=== PATIENT | female | born 1950 | race Caucasian/White ===

== ENCOUNTER 2018-07-19 13:30 | Outpatient (RCR) | payer MEDICARE, SELFPAY ==
--- NOTE | 2018-06-21 10:33 | PTTR_ITS ---
DATE: 06/21/18 SUBJECTIVE: Pt reports that she did her MLD yesterday according to the handout she received Tuesday, and reports that it did help, that she was notably less swollen yesterday, although today the swelling has returned. OBJECTIVE: Manual therapy: ([id number]). With pt short-stitting EOB, mobilized both knees with PA/AP glides, METs into flexion with stretch held at end range. Pt moved into supine, mobilized bilateral patella in all planes. Stretched pt into extension - pt appeared to achieve full extension bilaterally. Briefly reviewed HEP including SLR to ensure isometric quad contraction. Placed bolster under legs, applied MLD to left leg beginning with opening the inguinal , popliteal, and ankle nodes. MLD techniques applied proximal to distal. Stimulated the aforementioned nodes again. Pt ended session with 5 minutes on the NuStep to encourage good AROM in both knees. Direct treatment time: 45 minutes Total treatment time: 45 minutes
--- NOTE | 2018-06-23 15:52 | PTTR_ITS ---
DATE: 06/23/18 SUBJECTIVE: Pt states that her surgeon mentioned that she needs to try and increase her knee extension. OBJECTIVE: Manual therapy: (15587s6). Pt received tibial femoral and patella femoral joint mobilizations to bilateral LE's. Pt received AAROM into knee flexion and extension. Pt utilized muscle energy techniques to increase knee flexion ROM. Pt was able to achieve R 100 degrees knee flexion L 96 degrees knee flexion. Pt was able to achieve 0 degrees knee extension bilaterally. Pt then received stimulation to the same side axillary, inguinal, popliteal, and ankle. Pt received MLD starting proximally and working distally clearing to the same side axillary. Therapeutic procedures (22156r3). * X Provided skilled instruction in proper exercise performance: Pt completed opened and closed chain LE strengthening, functional sit to stands, and cardio on the Nu Step. Direct treatment time: 45 Total treatment time: 55
--- NOTE | 2018-06-26 11:34 | PTTR_ITS ---
DATE: 06/26/18 OBJECTIVE: Co Treatment with PT Shyam King Manual therapy: (31395v). Pt received brief patella mobilization and mobilization into knee extension bilaterally. Pt was able to achieve 0 degrees knee extension on the right and lacking approx -5 knee extension of the left. Pt is going to try and cont to complete her self MLD at home and we will see if that is enough for the pt or if we need to cont a few more session here. Therapeutic procedures (30882z9). * X Provided skilled instruction in proper exercise performance: Pt completed open and closed chain LE strengthening, glute strengthening, functional sit to stands, and cardio on the Nu Step/ stationary bike for ROM. Pt ended today's session with CP and elevation for 10 min un attended with the wellness. Direct treatment time: 30 Total treatment time: 45
--- NOTE | 2018-06-26 13:55 | PTTR_ITS ---
DATE: 06/26/18 SUBJECTIVE: Pt states that she is doing ok. She had an update with her surgeon and he would like to see more mobilization occurring through the knee into the bend. OBJECTIVE: Manual therapy: (70259m6). Pt placed in the sitting position gently mobilized with light traction through the knee while ranged in a limited arc of motion and from 60-10*. She is then mobilized near full extension (B) and then an anterior glide of the tibia on a fixed femur is applied witrh gentle oscillations and then with a sustained anterior glide and utilizing light muscle energy technique of a contract relax variety. She is mobilized further into knee flexion which she tolerates well with expanding range on the (R) and more limited range through the (L). But she appears to be gaining. Gentle scap tissue mobilization to the more proximal section of the incision scar for tissue remodeling. Pt then seen by Jessica Lr PTA for additional strengthening exercises, please refer to her note for details. Direct treatment time: 30 minutes Total treatment time: 30 minutes
--- NOTE | 2018-06-28 11:12 | PTTR_ITS ---
DATE: 06/28/18 OBJECTIVE: Manual therapy: (08151g). Pt received brief mobilization to her left knee into knee flexion utilizing muscle energy techniques to increase ROM. Pt was able to achieve approx 95 degrees knee flexion on the L LE after mobilization. Therapeutic procedures (96566d1). * X Provided skilled instruction in proper exercise performance: Pt completed open and closed chain LE strengthening, glute strengthening, functional sit to stands, and cardio on the Nu Step. Pt completed the stationary bike for ROM purposes. Direct treatment time: 30 Total treatment time: 40
--- NOTE | 2018-06-28 13:16 | PTTR_ITS ---
DATE: 06/28/18 SUBJECTIVE: Pt states that she is doing ok for the most part. OBJECTIVE: Manual therapy: (57407r7). Pt placed in the sitting position receiving gentle traction through the knee while ranged in a limited arc of motion from 60-10*. She is mobilized with light traction through the knee and will also use tibial rotation into IR/ER expressed at a limit of tibial torion. She is mobilized with an anterior glide of the tibia on a fixed femur to improve articular glide and capsular extensibility and then a muscle energy technique is applied to release quadricep tension while improving flexion and mobility. This occurs (B) and she is then seen by Be Lopez PTA for additional mobilization and strengthening exercises see her note for details. Direct treatment time: 25 minutes Total treatment time: 25 minutes
--- NOTE | 2018-06-30 09:51 | PTTR_ITS ---
DATE: 06/30/18 OBJECTIVE: This was a co tx with PT Shyam King please refer to his note for specifics. Manual therapy: (68439d1). Consisting of patella mobilization and mobilization to (B) knee extension which pt was able to achieve 0* of extension. Therapeutic procedures (96536z4). Pt then completed a therapeutic exercise program consisting of open and closed chain LE strengthening activities, functional sit to stands, glute strengthening activities and cardiovascular exercise on the Nustep and the stationary bike for ROM purposes. Pt was able to tolerate a full revolution today on the bike. Direct treatment time: 30 minutes Total treatment time: 45 minutes
--- NOTE | 2018-06-30 14:34 | PTTR_ITS ---
DATE: 06/30/18 SUBJECTIVE: Pt states that she is doing ok. She noticed that her L leg was a little more sore today. She doesn't really recall what she did to make it a little more sore. OBJECTIVE: Manual therapy: (69842s9).Pt placed in the sitting position receiving gentle oscillations of movement from 60-10 degrees of knee flexion while under light traction through the joint. She is then mobilized with anterior glide of the tibia on a fixed femur to improve articular extensibility of the joint capsule. Then contract/relax MET is applied through the quad to decrease quadricep splintering while furthering her flexion motion. Pt then placed in supine with the knee at 45 degrees on the L side propped up on a wedge pillow.She is mobilized with IASTM through the more proximal section of her scar tissue of the incision. She notices a significant improvement of the quality of her knee motion afterwards and she is mobilized to well over 100 degrees of knee flexion. She is then seen by Karely Lr PTA for additional strengthening exercises. See her note for details. Direct treatment time: 30 min Total treatment time: 30 min direct pt care EVANGELINA/vesta
--- NOTE | 2018-07-03 10:28 | PTTR_ITS ---
DATE: 07/03/18 SUBJECTIVE: Pt states that she is pretty sore today. OBJECTIVE: Manual therapy: (85563n1). Todays session consisted of pt receiving tibiofemoral and patella femoral joint mobilizations to the involved LE as well as stretching into knee flexion and extension. While in the seated position after mobilization for knee flexion on the (L) pt was able to achieve 93* of knee flexion on the (R), 102* knee flexion after utilizing muscle energy techniques and mobilization. Pt was able to achieve 0* knee extension (B) and pt then transitioned into the prone position and received mobilization into knee flexion in that position as well. Pt did seem to be quite sore today and didn't tolerate her ROM as well as she usually does. Therapeutic procedures (65360g4). Pt then completed a therapeutic exercise program consisting of open and closed chain LE strengthening activities as per flow sheet. Functional sit to stands, glute strengthening activities and cardiovascular exercise on the Nustep and stationary bicycle for ROM purposes with the wellness. Direct treatment time: 40 minutes Total treatment time: 60 minutes
--- NOTE | 2018-07-06 15:41 | PN_ITS ---
DATE: 07/06/18 REFERRING: Alondra Boles NP REFERRING PROVIDER DIAGNOSIS:: Bilateral TKA PHYSICAL THERAPY DIAGNOSIS: Difficulty walking REPORTING PERIOD (for progress note and discharge note only): 06/13/18 thru 07/06 SUBJECTIVE: I am doing okay. I have been noticing some big improvements at home. OBJECTIVE: Manual therapy: (55325w9). Patient was guided through gentle traction through the knee while ranged from a limited arc of motion 60-10 degrees. She was mobilized with light traction and tibial internal and external rotation to tolerable limit. An anterior glide of the tibia was completed through a fixed femur to work articular and capsular extensibility. Patient then mobilized under gentle contract relax muscle energy technique through deeper flexion ranges of motion of the knee. In supine she is mobilized with IASTM over the proximal scar tissue incision on both knee for remodeling and scar tissue work. Therapeutic procedures (01301w0). * X HEP review: Technique review and corrective modification where appropriate. * X See flow sheet: Completed all corrective activities * X Provided skilled instruction in proper exercise performance: [] * X Provided skilled manual cues to facilitate proper muscle recruitment and/ or movement pattern: [] * X Other: Utilized stationary bike as an augmented mobilization tool today with randomized forward and backward cycling against variable resistance. Treatment time: 55 minutes of direct patient care. ASSESSMENT: X Patient requires continued skilled Physical Therapy intervention to remediate the above functional limitations to return to: * X Premorbid level of function. * X Full functional mobility. * X Improve quality of life. G-Codes (add modifier after appropriate code): Patient's primary functional limitation is in the category of: * X Mobility - walking and moving around : [id number] Present status determined by (SM or other justification): Patient having near unlimited involvement in house hold chores and activities already greater than her premorbid level of function. She is still limited by her walking deficits in distance however. Goal to increase functional capacity beyond premorbid level of function with ambulation. GP -[id number] Goal progression: (copy/paste from IE or last PN). 1. Patient able to walk 1/2 mile independent of assistive device. Goal very close to be met. 2. Patient able to walk 1200 through 6MWT. Goal not met. 3. Patient able to utilize a reciprocal step pattern for negotiating up to 2 flights without evidence of pain. Goal very close to being met. PLAN: Patient to continue treatment, 2 x per week, for 5 weeks, adjusting frequency of visits per patient symptoms and response to treatment. Treatment to include: * X Manual therapy - [id number][] (indicate any further detail here): [] * X Therapeutic exercise - 08259H-[]. * X Neuro Re-ed - 10386T-[]. Thank you for your continued support of this patient! cc. Osman Boles, DO
--- NOTE | 2018-07-10 10:07 | NT_ITS ---
NON TREATMENT NOTE; 07/10/18 Patient called to cancel today's appointment
--- NOTE | 2018-07-12 11:47 | PTTR_ITS ---
DATE: 07/12/18 OBJECTIVE: Co Treatment with Pt Shyam Maganaer Therapeutic procedures (24406k3). * X Provided skilled instruction in proper exercise performance: Pt completed functional sit to stands, open and closed chain LE strengthening, wobble board, glute strengthening, stationary bike for ROM purposes, and cardio on the Nu Step. I will cont to progress pt's program and when she has an established program pt will complete the MSP program. Direct treatment time: 25 Total treatment time: 40
--- NOTE | 2018-07-12 15:16 | PTTR_ITS ---
DATE: 07/12/18 SUBJECTIVE: I am doing okay for the most part. OBJECTIVE: Manual therapy: (26612o8): Patient was placed in sitting and mobilized with gentle traction through the knee while guided through a limited arc of motion from 60-10 degrees. She was mobilized with anterior glide of the tibia on a fixed femur to improve articular extensibility. Patient then mobilized with light traction and tibial internal and external rotation. Patient was then mobilized through the plane of flexion while reinforcing a light tibial rotation , mild anterior glide, and using MET to soften muscle splinting through the quadriceps. She is then seen by Karely Lr PTA for additional exercises, see her note for details. Direct treatment time: 30 minutes of direct patient care.
--- NOTE | 2018-07-14 14:16 | PTTR_ITS ---
DATE: 07/14/18 SUBJECTIVE: I am doing okay for the most part. OBJECTIVE: Manual therapy: (62986o1): Patient was placed in sitting and mobilized with gentle traction through the left lower extremity while ranged in a limited arc of motion from 60-10 degrees. She was mobilized from 60 degrees with light traction and internal and external rotation within level of tolerance to end limit. Contract relax muscle energy technique was used for patient to decrease tension through the quadriceps and increase available motion through flexion. Patient was able to reach close to 110 degrees with minimal amounts of compensatory hip girdle elevation. Patient tolerated treatment well. Then seen by Karely Lr PTA for guided therapeutic instruction via corrective exercise see her note for details. Direct treatment time: 30 minutes of direct patient care.
--- NOTE | 2018-07-14 14:35 | PTTR_ITS ---
DATE: 07/14/18 OBJECTIVE: Co Treatment with PT Shyam King Therapeutic procedures (06414j1). * X Provided skilled instruction in proper exercise performance: Pt completed open and closed chain LE strengthening, glute strengthening, functional sit to stands, and cardio on the stationary bike and Nu Step. Pt was prepped for her last time for MSP. She will complete her program on her own starting next week. Direct treatment time: 30 Total treatment time: 45
--- NOTE | 2018-07-17 14:22 | PTTR_ITS ---
DATE: 07/17/18 SUBJECTIVE: I am doing okay for the most part. OBJECTIVE: Manual therapy: ([id number]): Patient was placed in supine and mobilized with gentle oscillatory traction through the knee while ranged from a limited arc of motion from 60-10 degrees. Patient was then mobilized with anterior glide of the tibia on a fixed femur to improve articular extensibility. She was guided through MET to decrease muscle tension and improve articular flow of motion with her flexion. Patient mobilized beyond 110 degrees and then taken through the stationary bike to reinforce her movement patterns for 5 minutes of unbilled time. Direct treatment time: 30 minutes of direct patient care. 5 minutes of unbilled time for 35 minutes of total treatment.
--- NOTE | 2018-07-19 10:32 | PTTR_ITS ---
DATE: 07/19/18 SUBJECTIVE: Patient states she is doing O.K. for the most part. Is handling herself well at home, and trying to perform some of her exercises for treatment. OBJECTIVE: Manual therapy: (84954w8). Patient was placed in the sitting position and gently mobilized through the left knee with traction while mobilizing in a limited arc of motion from 60 to 10 . She was then mobilized with an anterior glide of the tibia on a fixed femur. MET was employed to decrease splinting through the quadriceps musculature, and allow unrestricted motion through her tolerable end limit of flexion, which occurs at about 110 . She was then placed on the stationary bike x5 minutes of un-billed time. Direct treatment time: 30 minutes Total treatment time: 35 minutes Shyam King DPT gc
== END 2018-07-21 23:59 | disposition home or self-care (01) ==
LOC: PT 13:30
PROVIDERS: PCP Internal Medicine Sleep Medicine; Referring Provider Nurse Practitioner; Visit Provider Nurse Practitioner
DX: Z47.1 Aftercare following joint replacement surgery (principal); Z96.653 Presence of artificial knee joint, bilateral
CPT/HCPCS: 97110; 97140

== ENCOUNTER 2018-12-02 11:01 | Emergency (ER) | payer MEDICARE, SELFPAY ==
[2018-12-02 11:10] VITALS: BP 157/87; PULSE 98; RESP 16; TEMP 37; O2SAT 94
--- NOTE | 2018-12-02 11:44 | DI.RAD_ITS ---
SYMPTOM/DIAGNOSIS: SENSATION OF FOREIGN BODY IN THROAT, R/O FOREIGN BODY SOFT TISSUE NECK: There is no prevertebral soft tissue swelling. No radiopaque foreign body seen. No tracheal deviation. There are degenerative changes in the lower cervical spine. IMPRESSION: Degenerative changes. No evidence of foreign body.
--- NOTE | 2018-12-02 11:44 | DI.RAD_ITS ---
SYMPTOM/DIAGNOSIS: FOREIGN BODY SENSATION IN THROAT, F/O FOREIGN BODY PA AND LATERAL CHEST: Comparison is made with 05 Nov 2004. The heart size is normal. The aorta is again noted to be tortuous. The lungs appear clear. No infiltrate or effusion seen. There is no evidence of a foreign body. IMPRESSION: No acute abnormality.
[2018-12-02] MEDS: Omeprazole 20 MG CAPCR PO (11:49)
--- NOTE | 2018-12-02 12:18 | ED.GENADUL_ITS ---
Discharge Plan Disposition Patient Disposition: HOME Condition: Improving Discharge Details Chief Complaint: ThroatFB Clinical Impression: Acid indigestion, Belching, Foreign body sensation in throat Primary Care Provider: Omkar Diego ED Provider: Mary Sotelo Home Meds and New Rx's Prescriptions: New Prilosec OTC 20 mg tablet,delayed release (DR/EC) 20 mg PO DAILY 14 Days Qty: 14 RF: 0 Continued Vitamin D3 4,000 unit Capsule 4,000 unit PO DAILY RF: 0 Discharge Instructions Instructions: Gastroesophageal Reflux Disease (ED) Additional Instructions: Take your Prilosec that you have at home as directed. Take [id number] antacids and/or mylanta as directed. You will receive a call from care management regarding a follow-up appointment with general surgery for reevaluation and for consideration of endoscopy. You can also call your primary care doctor for referral to gastroenterology at [facility]. Return immediately to the emergency department any worsening or new concerning symptoms. Referrals: Seema Piña MD [ [facility] STAFF PHYSICIAN] - Discharge Data Discharge Date/Time-TO BE ENTERED AT DEPARTURE: 12/02/18 13:40 Discharge Physician: Mary Sotelo Medical Decision Making 68-year-old female who presents with foreign body sensation in throat, acid taste in mouth, frequent gurgling and belching for the past 3 weeks. Denies any history of choking on food or food getting stuck. She denies any chest pain, vomiting, fever abdominal pain. Vitals within normal limits. Patient appears nontoxic and in no acute distress. She does appear anxious. Blood pressure mildly hypertensive, otherwise vitals within normal limits. Differential diagnosis includes most likely GERD, gastritis, peptic ulcer. Discussed with patient that she will most likely need an upper endoscopy to assess her symptoms further. Will obtain a soft tissue neck and chest x-ray to rule out any foreign body or any other abnormalities. Patient also has an allergy to peanuts, which causes a cross sensitivity with Pepcid p.o. She states her allergy to peanuts causes mainly nausea and abdominal pain. Although this may not be an allergy, do not plan to treat with Pepcid at home, patient states she has Prilosec at home. Will give a GI cocktail and a dose of Prilosec now. Imaging reviewed and negative. EKG done and unremarkable. Patient states she feels much better after meds given here. Patient instructed to take her Prilosec at home as directed. Will also send home with a prescription. Will place patient on care management list to help arrange for follow-up appoinment with surgery for possible endoscopy. Patient also instructed to follow-up with a primary care doctor and for referral to gastroenterology for endoscopy if does not follow-up here. Patient instructed return here at any time if worse. Medical Records Medical records reviewed: Yes I reviewed the patient's medical records. Imaging Data Radiologic Study: Radiologist's impression: XR Soft Tissue Neck FINDINGS: Airway: Normal. No abnormal narrowing. Soft tissues: Normal. Normal epiglottis. Bones/joints: There is spondylosis at C5-6 and C6-7. Other findings: Denture were noted. IMPRESSION: No evidence for radiopaque foreign body. XR Chest, 2 Views FINDINGS: Lungs: Unremarkable. No consolidation. Pleural space: Unremarkable. No pleural effusion. No pneumothorax. Heart/Mediastinum: Unremarkable. No cardiomegaly. Vasculature: There is atherosclerotic change in the aorta with mild ectasia. Bones/joints: Unremarkable. IMPRESSION: No evidence for radiopaque foreign body. No acute abnormality noted in the chest. ECG Data Attestation: I personally reviewed and interpreted this ECG (s) as follows: Interpretation: 1333: Rate of 68, sinus, no acute ST elevation or depression, QTC 406. QRS 96. T wave inversion in lead III, seen in previous EKG. HPI General Mode of arrival: ambulatory . Date/Time Provider Initiated Documentation: 12/02/18 11:17 . Limitations to Documentation: no limitations . Information obtained by: patient . HPI Narrative: Patient is a 68-year-old female with history of arthritis and GERD who presents with sensation of possible food stuck in throat, acid reflux, belching, and scratchy throat for the past 3 weeks. Patient states she does not recall choking on food and does not think there is any food stuck, but she has the sensation when she swallows that there is bubbling and gurgling. She states she has a sensation that she needs to clear her throat regularly. Patient states she has been otherwise able to eat and drink. She states yesterday she was drinking liquids and felt like she was only able to take a few sips due to a stuck sensation. Patient states she was able to eat breakfast morning and no nausea or vomiting. She does also admit to a dry cough and occasional acid taste in mouth. Patient states she has been occasionally taking an antacid without relief. She denies any fever, pain in chest, abdomen or throat, recent travel, recent antibiotics, or any other new medications. Patient states she had been taking 600 mg of Motrin daily for the past 5 years due to chronic hip and knee pain but states she has not taken this for a few months. Related Data Home Medications Medication Instructions Recorded Confirmed Vitamin D3 4,000 unit PO DAILY 12/02/18 12/02/18 omeprazole magnesium [Prilosec OTC] 20 mg PO DAILY 14 Days #14 tab 12/02/18 Previous Rx's Medication Instructions Recorded omeprazole magnesium [Prilosec OTC] 20 mg PO DAILY 14 Days #14 tab 12/02/18 Allergies Allergy/AdvReac Type Severity Reaction Status Date / Time latex Allergy Skin Rash Unverified 12/02/18 11:15 peanut Allergy Nausea Unverified 12/02/18 11:17 Sulfa (Sulfonamide Allergy PASSED Unverified 12/02/18 11:15 Antibiotics) OUT acetaminophen [From Tylenol] AdvReac GI UPSET Unverified 12/02/18 11:15 aspirin AdvReac GI UPSET Unverified 12/02/18 11:15 General Stated Complaint: ThroatFB ZACH: 3 Review of Systems Review of Systems All systems reviewed & are unremarkable except as noted in HPI and below Constitutional Reports as per HPI, Denies chills and Denies fever(s) Eyes Denies blurry vision ENT Denies dizziness, Reports hoarseness, Denies odynophagia, Denies sore throat and Denies throat swelling Cardiovascular Denies chest pain and Denies dyspnea Respiratory Denies dyspnea Gastrointestinal Denies abdominal pain, Denies diarrhea, Denies odynophagia and Denies vomiting Genitourinary Denies hematuria and Denies dysuria Musculoskeletal Denies back pain and Denies numbness Integumentary/Breasts Denies lesions and Denies rash Neurologic Denies dizziness and Denies numbness Allergic/Immunologic Denies throat swelling [facility] Medical History GERD (gastroesophageal reflux disease) (Chronic) Osteoarthritis (Chronic) Surgical History History of hip replacement (Chronic) History of knee replacement (Chronic) Social History Smoking/Tobacco Use Status: Never alcohol intake: current alcohol intake frequency: a few times a month substance use type: does not use Exam Const General: cooperative, healthy appearing and no acute distress HENMT Head: normal to inspection Ears: hearing grossly normal bilaterally and TM's normal bilaterally General nose exam: external nose normal Face and sinus: normal facial exam Mouth: oral mucosae normal and oropharynx normal Throat: posterior oropharynx normal Eyes General: appearance normal, both eyes and all related structures EOM: EOM intact bilaterally Neck Neck: normal visual inspection and No submandibular swelling Lymphatic: no lymphadenopathy noted Chest Chest: normal inspection of the chest and no tenderness Resp Effort & Inspection: normal respiratory effort and able to speak in complete sentences Auscultation: clear to auscultation bilaterally Cardio Rate: regular rate Rhythm: regular rhythm GI Inspection: normal to inspection Palpation: soft, not firm, not rigid and nontender Auscultation: normal bowel sounds Skin General skin exam: no rashes or lesions noted Neuro General: alert, awake and oriented x3 Cognition: normal cognition Speech: speech normal Motor: muscle tone normal throughout Sensory Exam: no sensory deficits noted Extrem General: normal to inspection and full ROM Psych Appearance: grossly normal Mental Status: mental status grossly normal Speech and Movement: speech and movement normal Affect: normal affect Course Vital Signs Temperature 98.6 F 12/02/18 11:10 Pulse 98 H 12/02/18 11:10 Respiratory Rate 16 12/02/18 11:10 Blood Pressure 157/87 H 12/02/18 11:10 Pulse Oximetry 94 L 12/02/18 11:10 Temperature 98.6 F 12/02/18 11:10 Temperature Source Skin 12/02/18 11:10 Pulse 98 H 12/02/18 11:10 Respiratory Rate 16 12/02/18 11:10 Respiratory Effort Non-Labored 12/02/18 11:10 Blood Pressure 157/87 H 12/02/18 11:10 Blood Pressure Position Sitting 12/02/18 11:10 Pulse Oximetry 94 L 12/02/18 11:10 Oxygen Delivery Method Room Air 12/02/18 11:10 Oxygen Flow Rate 0 12/02/18 11:10 Pain Level 0 12/02/18 11:10
--- NOTE | 2018-12-02 12:52 | DI.VRAD_ITS ---
EXAM: XR Chest, 2 Views EXAM DATE/TIME: 12/02/2018 12:16 PM CLINICAL HISTORY: 68 years old, female; Signs and symptoms; Other: Sensation of foreign body TECHNIQUE: XR of the chest, 2 views. COMPARISON: No relevant prior studies available. FINDINGS: Lungs: Unremarkable. No consolidation. Pleural space: Unremarkable. No pleural effusion. No pneumothorax. Heart/Mediastinum: Unremarkable. No cardiomegaly. Vasculature: There is atherosclerotic change in the aorta with mild ectasia. Bones/joints: Unremarkable. IMPRESSION: No evidence for radiopaque foreign body. No acute abnormality noted in the chest. COMMENT: Preliminary interpretation is based on receipt of 2 image(s). A final report will be issued subsequently. Dictated and Authenticated by: Nydia Stovall MD. Ordering:SUNSHINE Hernandez MD
--- NOTE | 2018-12-02 12:52 | DI.VRAD_ITS ---
EXAM: XR Soft Tissue Neck EXAM DATE/TIME: 12/02/2018 11:46 AM CLINICAL HISTORY: 68 years old, female; Signs and symptoms; Other: Sensation of foreign body. TECHNIQUE: XR of the soft tissues of the neck. COMPARISON: CT NECK WITH CONTRAST 12/27/2016 8:46 AM FINDINGS: Airway: Normal. No abnormal narrowing. Soft tissues: Normal. Normal epiglottis. Bones/joints: There is spondylosis at C5-6 and C6-7. Other findings: Denture were noted. IMPRESSION: No evidence for radiopaque foreign body. COMMENT: Preliminary interpretation is based on receipt of 3 image(s). A final report will be issued subsequently. Dictated and Authenticated by: Nydia Stovall MD. Ordering:SUNSHNIE Hernandez MD
--- NOTE | 2018-12-04 09:23 | PDOC.ERCMPRO ---
Care Management Progress Note 12/04-Dr. Sotelo requested assistance with a general surgery f/u in 1-2 weeks for heartburn acid taste in mouth, ?needs endoscopy. Referral faxed to [facility] this am.
== END 2018-12-02 13:40 | disposition home or self-care (01) ==
PROVIDERS: Emergency Provider Physician Assistant; PCP Family Medicine
DX: R09.89 Other specified symptoms and signs involving the circulatory and respiratory systems (principal); K30 Functional dyspepsia; R14.2 Eructation; I10 Essential (primary) hypertension; K21.9 Gastro-esophageal reflux disease without esophagitis
CPT/HCPCS: 93005; 99285; 70360; 71046; 93010; 99284

== ENCOUNTER 2022-11-07 11:59 | Emergency (ER) | payer MEDICARE, SELFPAY ==
[2022-11-07 12:21] VITALS: BP 160/83; PULSE 96; RESP 16; TEMP 37
--- NOTE | 2022-11-07 12:39 | W.ED.GENAD ---
Discharge Plan Disposition Patient Disposition: Home Condition: Good Discharge Details Clinical Impression: Closed fracture nasal bone, Concussion, Fall Primary Care Provider: Omkar Diego ED Provider: Feliberto Almazan Home Meds and New Rx's Prescriptions: No Action Vitamin D3 4,000 unit Capsule 4,000 unit PO DAILY Discharge Instructions Instructions: Nasal Fracture (ED), Concussion (ED) Additional Instructions: At this time you do have a small fracture of your nose. CAT scans of your head show no other significant abnormality otherwise. Please use ice as needed for pain and swelling. The bruising will get worse with time. If you notice any worsening of your symptoms, or any new symptoms such as vomiting, diarrhea, fever, chills, shortness of breath, chest pain, numbness, weakness, or fainting , please return immediately to the emergency department for reevaluation. Please follow up with your primary care provider as soon as possible for reassessment and reevaluation. As always, it was a pleasure participating in your medical care today. Referrals: Omkar Diego [Primary Care Provider] - Medical Decision Making 72-year-old female with past medical history of GERD and osteoarthritis presents today for evaluation of fall. Patient states that she was outside and slipped on the ice and fell forward and hit the front of her face. She immediately had bleeding from her nose. She shortly thereafter came to the ER for further assessment. She admits to mild tenderness on the front of her face and her nose. She denies any loss of consciousness, vision changes, or other pain or tenderness. She denies any significant chest pain or shortness of breath. No other complaints at this time. No other modifying factors. She is not on any blood thinners. Them demonstrates blood at the nares, no active bleeding. Mild swelling over the nasal bridge. No large nasal deformity. No midline cervical thoracic or lumbar spine tenderness. Patient is very clearly explaining her history that the fall was mechanical in nature. No concern for cardiac etiology clinically at this time. We will get a CT scan of the head and face, monitor closely and reassess. [address] scan results have returned, no evidence of acute intracranial injury. There is evidence of a questionable small nasal fracture. The remainder of the CT scan is unremarkable. On reassessment patient feels well. Repeat neurologic exam shows no focal neurologic deficits. Recommend NSAIDs and ice at home for contusion. Discussed concussion symptoms for home. Discussed red flags for which to return. Patient feels well, stable for discharge. Bedside ultrasound was performed of the patient's lungs prior to discharge for thoroughness of exam. No evidence of pneumothorax. Patient feels well. I have extensively reviewed the treatment plan and discharge instructions with the patient. I have addressed all patient concerns at this time. The patient was made aware of what symptoms to monitor for that would warrant a return to the emergency department. Discussed the plan with the patient, they demonstrate verbal understanding and agreement with our assessment and plan at this time. The documentation in this chart was dictated using [employer] dictation software. Please excuse any dictation errors. FINDINGS: Brain: No acute intracranial hemorrhage.. There is mild diffuse heterogeneity of the white matter attenuation, consistent with chronic white matter ischemic changes. Mild cerebral atrophy Cerebral ventricles: No ventriculomegaly. Paranasal sinuses: Mild opacities in left maxillary sinus may represent mild sinusitis Mastoid air cells: Visualized mastoid air cells are well aerated. Bones/joints: See the report for CT face Soft tissues: Unremarkable. IMPRESSION: No acute intracranial hemorrhage.. FINDINGS: Orbital cavities: Orbits are normal. Globes are unremarkable. Bones/joints: See Soft tissues finding. Paranasal sinuses: Normal. No air-fluid levels. Soft tissues: Soft tissue swelling adjacent to the nose. Bubbles of air in this region may indicate open injury. Slight contour abnormality along the left nasal bone series 10, image 200 -207 There are lucencies in the distal aspect of the nose. Series 10 image 211 . Findings may represent nondisplaced nasal fractures. IMPRESSION: Soft tissue swelling adjacent to the nose. Bubbles of air in this region may indicate open injury. Slight contour abnormality along the left nasal bone series 10, image 200 -207 There are lucencies in the distal aspect of the nose. Series 10 image 211 . Findings may represent nondisplaced nasal fractures. Thank you for allowing us to participate in the care of your patient. Dictated and Authenticated by: Melvin Burch MD 11/07/2022 1:45 PM Eastern Time ([place] & [place]) HPI General Date/Time Provider Initiated Documentation: 11/07/22 12:25. HPI Narrative: 72-year-old female with past medical history of GERD and osteoarthritis presents today for evaluation of fall. Patient states that she was outside and slipped on the ice and fell forward and hit the front of her face. She immediately had bleeding from her nose. She shortly thereafter came to the ER for further assessment. She admits to mild tenderness on the front of her face and her nose. She denies any loss of consciousness, vision changes, or other pain or tenderness. She denies any significant chest pain or shortness of breath. No other complaints at this time. No other modifying factors. She is not on any blood thinners. Related Data Home Medications Medication Instructions Recorded Confirmed cholecalciferol (vitamin D3) 100 4,000 unit PO DAILY 12/02/18 12/02/18 mcg (4,000 unit) capsule (Vitamin D3) Allergies Allergy/AdvReac Type Severity Reaction Status Date / Time latex Allergy Skin Rash Unverified 12/02/18 11:15 peanut Allergy Nausea Unverified 12/02/18 11:17 Sulfa (Sulfonamide Allergy PASSED Unverified 12/02/18 11:15 Antibiotics) OUT acetaminophen [From Tylenol] AdvReac GI UPSET Unverified 12/02/18 11:15 aspirin AdvReac GI UPSET Unverified 12/02/18 11:15 General Stated Complaint: Trauma ZACH: 3 Review of Systems All systems reviewed & are unremarkable except as noted in HPI and below PFSH All Active Problems (Updated 11/07/22 @ 14:08 by Feliberto Almazan DO) Closed fracture nasal bone (Acute) Concussion (Acute) Fall (Acute) Medical History (Updated 11/07/22 @ 14:08 by Feliberto Almazan DO) GERD (gastroesophageal reflux disease) Osteoarthritis Surgical History History of hip replacement History of knee replacement Social History Smoking/Tobacco Use Status: Never Smoking risk assessment performed?: Yes Alcohol Intake: current Alcohol Intake frequency: a few times a month Drug use: Never Substance use type: does not use Do you feel safe in your relationship?: Yes Exam Narrative Exam Narrative: 1.Const: Well-nourished, Well-developed, appearing stated age 2.Eyes: PERRL, no conjunctival injection, and symmetrical lids. 3.ENT: Patient demonstrates mild swelling over the bridge of her nose, dried blood at the nares. Mild swelling over the nasal bridge.. Moist MM. Neck: Symmetric, trachea midline, No thyromegaly. There is no evidence of raccoon eyes, alonso sign, CSF rhinorrhea, mastoid tenderness, cranial crepitus, hemotympanum, exophthalmos, or hyphema. Patient demonstrates intact dentition with no signs of tooth avulsion or fracture, no signs of jaw deformity, no evidence of a LeFort's fracture, with an intact palate, nose and orbital region. There is no evidence of a nasal septal hematoma. No proptosis. Jaw closes symmetrically. Airway is clear. 4.CVS: +S1/S2, No murmurs or gallops. Peripheral pulses 2+ and equal in all extremities. Brisk capillary refill in all extremities. 5.RESP: Unlabored respiratory effort. Clear to auscultation bilaterally. No wheezes rales or rhonchi 6.GI: Soft, Nontender/Nondistended, No hepatosplenomegaly. No guarding or rebound. 7.MSK: Normocephalic/Atraumatic, Extremities w/o deformity or ttp No cyanosis or clubbing, Normal movement of all extremities. No midline cervical thoracic or lumbar spine tenderness. 8.Skin: Warm, Dry. No rashes or lesions. 9.Neuro: casino floor runner II-XII grossly intact. Sensation grossly intact, no focal neurologic deficits. All 6 cardinal planes of vision are fully intact. No evidence of rotatory or vertical nystagmus. The patient demonstrated a normal pfvzba-huqk-nwiawe, good dexterity. There was no evidence of dysdiadochokinesia. Patient was able to ambulate without difficulty. There was no wide-based gait. Romberg testing was normal. Rxcj-af-lowk testing was normal. Sensation was intact bilaterally as well as muscle strength bilaterally for all extremities. Patient was able to verbalize butter cup with no slurring, or miss pronunciation. 10.Psych: (AAO) x3. Appropriate mood and affect Course Vital Signs Vital signs: Vital Signs Temperature 37.0 C 11/07/22 12:21 Pulse 96 H 11/07/22 12:21 Respiratory Rate 16 11/07/22 12:21 Blood Pressure 160/83 H 11/07/22 12:21 Temperature 37.0 C 11/07/22 12:21 Temperature Source Temporal Artery Scan 11/07/22 12:21 Pulse 96 H 11/07/22 12:21 Respiratory Rate 16 11/07/22 12:21 Respiratory Effort Non-Labored 11/07/22 12:32 Blood Pressure 160/83 H 11/07/22 12:21 Blood Pressure Position Sitting 11/07/22 12:21 Oxygen Delivery Method Room Air 11/07/22 12:21 Oxygen Flow Rate 0 11/07/22 12:21
--- NOTE | 2022-11-07 12:48 | DI.CT_ITS ---
Exam(s) CT HEAD FACIAL WO EXAM: CT HEAD FACIAL WO CLINICAL HISTORY: fell, hit face, r/o fx. TECHNIQUE: Imaging Protocol: Axial computed tomography images with coronal and sagittal reformatted images were created and reviewed COMPARISON: No exams were available for comparison FINDINGS: CT Head: Ventricles and Extra axial spaces: Normal in size and morphology for the patient's age. Hemorrhage: None. Cerebral parenchyma: Minimal white matter changes of small vessel disease. Minimal atrophy. Midline shift: None. Brainstem/Cerebellum: Normal. Calvarium: Normal. Visualized Paranasal sinuses/Mastoids: Clear. Soft Tissues: Soft tissue swelling around the nasal bones. CT Face: Facial Bones: Nondisplaced left nasal bone fracture. No additional fractures. Sinuses and Mastoids: Small mucous retention cyst left maxillary sinus. Loan bullosa of the right middle turbinate. Globes, extraocular muscles, optic nerves and retrobulbar fat: Normal. Upper aerodigestive tract: Normal. Mandible and bilateral temporomandibular joints: Normal. Soft tissues: Normal. IMPRESSION: 1. No acute intracranial process. 2. Nondisplaced fracture left nasal bone. RADIATION DOSE DELIVERED: 1,664.77mGy.cm Total DLP DATA REPOSITORY: All CT scans at this facility are submitted to the National Radiology Data Registry (NRDR) Dose Index Registry (DIR) with the [employer] (A[employer]). RADIATION OPTIMIZATION: All CT scans at this facility use at least one of these dose optimization te chniques: automated exposure control; mA and/or kV adjustment per patient size (includes targeted exa ms where dose is matched to clinical indication); or iterative reconstruction.
[2022-11-07 13:22] VITALS: BP 164/87; PULSE 96; RESP 18; TEMP 36.8; O2SAT 91
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
[2022-11-07 14:19] VITALS: BP 164/87; PULSE 96; RESP 18; TEMP 36.8; O2SAT 91
== END 2022-11-07 14:22 | disposition home or self-care (01) ==
PROVIDERS: Emergency Provider Student in an Organized Health Care Education/Training Program; PCP Family Medicine
DX: S02.2XXA Fracture of nasal bones, initial encounter for closed fracture (principal); M19.90 Unspecified osteoarthritis, unspecified site; W00.0XXA Fall on same level due to ice and snow, initial encounter
CPT/HCPCS: 99284; 70450; 70486

== ENCOUNTER 2022-11-19 20:40 | Emergency (ER) | payer MEDICARE, SELFPAY ==
[2022-11-19 20:46] VITALS: BP 180/84; PULSE 113; RESP 18; TEMP 37.8; O2SAT 94
--- NOTE | 2022-11-19 21:00 | DI.RAD_ITS ---
Exam(s) XR PORTABLE CHEST AP EXAM: XR PORTABLE CHEST AP CLINICAL HISTORY: PUI, fever, cough TECHNIQUE: 2D digital imaging was performed. COMPARISON: CR XR CHEST 2V PA LATERAL from 12/02/2018 FINDINGS: LUNGS: No focal area of consolidation. No overt pulmonary edema. Blunting at the left costophrenic angle likely representing small effusion. HEART: Enlarged versus projection. AORTA: Normal diameter. BONES: Degenerative changes of shoulders and spine. Soft tissues: Unremarkable. IMPRESSION: Small left pleural effusion. DATA REPOSITORY: RADIATION DOSE DELIVERED:
--- NOTE | 2022-11-19 21:01 | ED.GENADUL_ITS ---
Discharge Plan Disposition Patient Disposition: Home Condition: Improving Discharge Details Clinical Impression: Upper respiratory infection Primary Care Provider: Omkar Diego ED Provider: Omkar Oneal Home Meds and New Rx's Prescriptions: New amoxicillin-pot clavulanate 875-125 mg tablet 1 tab PO BID 10 Days Qty: 20 0RF Continued Vitamin D3 4,000 unit Capsule 4,000 unit PO DAILY Discharge Instructions Instructions: Upper Respiratory Infection (ED) Additional Instructions: Your [id number] COVID and influenza tests were negative. As we discussed, we will use a sodd-rkz-ami approach to the use of antibiotics. If you have persistent fever and cough, consider starting antibiotics tomorrow. Home to rest this evening. Small, frequent sips of fluids to maintain hydration. Tylenol and ibuprofen as needed for aches, pain, fever. Return to the emergency department for any acute concern Medical Decision Making 72-year-old female presents from home stating she has had some mild illness for approximately 1 week and now 2 days of worsening cough, congestion caudae ache, fever this evening. She has had some loose stool and decreased p.o. intake but no vomiting. She arrives to the ER slightly tachycardic and febrile with a temperature of 37.8. She is oxygenating normally and speaking in full sentences. Differential diagnosis includes pneumonia, dehydration, pneumonitis, viral process. [place] COVID and influenza tests obtained and negative. Patient had screening blood work obtained, referred for chest x-ray. Pt given an additional 500 mg of acetaminophen and 1 L of normal saline. Patient improved following his interventions. Her chest x-ray shows no focal infiltrate. As I discussed with the patient I am concerned for the possibility of an early pneumonia. We discussed a xztd-eya-tck approach to the use of antibiotics. She will be provided a prescription today. She is stable and improving. Will discharge to home at this time. HPI General Mode of arrival: ambulatory . Date/Time Provider Initiated Documentation: 11/19/22 20:41 . Limitations to Documentation: no limitations . Information obtained by: patient . History of Present Illness 72 year old F presents to the emergency department with the chief complaint of Fever chills and cough, described as moderate, and is localized to the chest. Patient reports no radiation. Patient started experiencing this hour(s) and it has been intermittent. No relieving factors improve symptom(s), No exacerbating factors reported . Patient notes cough and fever/chills; denies chest pain, shortness of breath and syncope. Patient did receive the following treatments prior to arrival, other (Acetaminophen 500 mg at 6:30 PM) Related Data Home Medications Medication Instructions Recorded Confirmed cholecalciferol (vitamin D3) 100 4,000 unit PO DAILY 12/02/18 12/02/18 mcg (4,000 unit) capsule (Vitamin D3) amoxicillin 875 mg-potassium 1 tab PO BID 10 days #20 tabs 11/19/22 clavulanate 125 mg tablet Previous Rx's Medication Instructions Recorded amoxicillin 875 mg-potassium 1 tab PO BID 10 days #20 tabs 11/19/22 clavulanate 125 mg tablet Allergies Allergy/AdvReac Type Severity Reaction Status Date / Time latex Allergy Skin Rash Unverified 12/02/18 11:15 peanut Allergy Nausea Unverified 12/02/18 11:17 Sulfa (Sulfonamide Allergy PASSED Unverified 12/02/18 11:15 Antibiotics) OUT acetaminophen [From Tylenol] AdvReac GI UPSET Unverified 12/02/18 11:15 aspirin AdvReac GI UPSET Unverified 12/02/18 11:15 General Stated Complaint: Fever ZACH: 3 Review of Systems Narrative: Fever, chills, dry cough, body ache. Sick contacts. Immunized against COVID. No influenza immunization. 8 systems reviewed and otherwise negative PFSH All Active Problems (Updated 11/19/22 @ 22:11 by Omkar Oneal MD) Closed fracture nasal bone (Acute) Concussion (Acute) Fall (Acute) Upper respiratory infection (Acute) Medical History (Updated 11/19/22 @ 22:11 by Omkar Oneal MD) GERD (gastroesophageal reflux disease) Osteoarthritis Surgical History History of hip replacement History of knee replacement Social History Smoking/Tobacco Use Status: Never Smoking risk assessment performed?: Yes Alcohol Intake: current Alcohol Intake frequency: a few times a month Drug use: Never Substance use type: does not use Do you feel safe at home: Yes Do you feel safe in your relationship?: Yes Exam Narrative Exam Narrative: GEN: awake, alert, oriented 3. Pleasant, well groomed, interactive. HEAD: Normocephalic, atraumatic ENT: Mucous membranes dry, oropharynx unremarkable, External ear exam unremarkable EYES: PERRL, EOMI NECK: Full ROM, no JOVANNI, no menigismus CHEST/RESP: Nontender, clear to auscultation bilateral, cough noted CARDIOVASCULAR: Regular and tachycardic, no murmur, rub johnny. 2+ Rad pulse bilateral ABDOMEN: Soft, nontender, no mass. +Bowel sounds EXT: Full ROM, no edema, no rash Neuro: Grossly normal neurologic exam, conversant, interactive. Psych: Speech fluent, thoughts congruent, affect normal Course Vital Signs Vital signs: Vital Signs Temperature 37.8 C H 11/19/22 20:46 Pulse 113 H 11/19/22 20:46 Respiratory Rate 18 11/19/22 20:46 Blood Pressure 180/84 H 11/19/22 20:46 Pulse Oximetry 94 11/19/22 20:46 Temperature 37.8 C H 11/19/22 20:46 Pulse 113 H 11/19/22 20:46 Respiratory Rate 18 11/19/22 20:46 Respiratory Effort 11/19/22 20:54 Blood Pressure 180/84 H 11/19/22 20:46 Pulse Oximetry 94 11/19/22 20:46 Pain Level 1 11/19/22 20:46
[2022-11-19] MEDS: Acetaminophen 500 MG TAB PO (21:04)
[2022-11-19] MEDS: Normal Saline 1,000 ML 1000 ML IV (21:05)
[2022-11-19 21:08] LABS: Abs Immature Grans 0.05 10^3/uL (0.0-0.06); Absolute Basophil Count 0.05 10^3/uL (0.0-0.2); Absolute Eosinophil Count 0.14 10^3/uL (0.0-0.7); Absolute Lymphocyte Count 1.03 10^3/uL (1.2-3.4); Absolute Monocyte Count 0.79 10^3/uL (0.1-0.8); Absolute Neutrophil Count 6.49 10^3/uL (1.2-6.7); Basophils % 0.6; Eosinophils % 1.6; HCT 42.4 % (36.0-46.0); HGB 13.4 g/dL (11.2-15.7); Immature Grans % 0.6; MCH 28.9 pg (27.0-33.0); MCHC 31.6 % (32.0-36.0); MCV 91 fL (80-95); MPV 10.2 fL (8.0-11.0); Monocytes % 9.2; Platelet Count 264 10^3/uL (130-400); RBC 4.64 10^6/uL (3.93-5.22); RDW 13.3 % (11.7-14.6); RDW-SD 45.1 fL; WBC 8.55 10^3/uL (4.4-10.8)
[2022-11-19 21:24] LABS: ALT 25 U/L (14-59); AST 20 U/L (15-37); Albumin 3.5 g/dL (3.4-5.0); Alkaline Phosphatase 127 U/L (46-116); Anion Gap 6.8 mmol/L (3-11); BUN 10 mg/dL (7-18); Bilirubin, Total 0.3 mg/dL (0.2-1.0); CO2 30.2 mmol/L (21.0-32.0); CREATININE 0.9 mg/dL (0.55-1.02); Calcium 8.9 mg/dL (8.5-10.1); Chloride 104 mmol/L (98-107); Glucose 165 mg/dL (74-106); Magnesium 2.1 mg/dL (1.8-2.4); Potassium 4.1 mmol/L (3.5-5.1); Sodium 141 mmol/L (136-145); Total Protein 7.7 g/dL (6.4-8.2)
--- NOTE | 2022-11-19 21:54 | DI.VRAD_ITS ---
PROCEDURE INFORMATION: Exam: XR Chest Exam date and time: 11/19/2022 9:03 PM Age: 72 years old Clinical indication: Cough and fever; Additional info: Covid, fever, cough TECHNIQUE: Imaging protocol: Radiologic exam of the chest. Views: 1 view. COMPARISON: SC XR CHEST 2V PA LATERAL 12/02/2018 12:04 PM FINDINGS: Lungs: No acute lung infiltrates or edema. Pleural spaces: Blunting of left costophrenic angle suggesting a minor left pleural effusion. Heart/Mediastinum: Mild cardiac enlargement. Bones/joints: Degenerative features of both shoulders and the thoracic spine. IMPRESSION: 1. Blunting of left costophrenic angle suggesting a minor left pleural effusion. 2. No acute lung infiltrates. 3. Degenerative skeletal changes. 4. Mild cardiac enlargement. Dictated and Authenticated by: Pepe Chavez MD. Ordering:CLINTON Espitia MD
[2022-11-19 22:16] VITALS: BP 137/62; PULSE 83; RESP 13; TEMP 37.4; O2SAT 99
== END 2022-11-19 22:19 | disposition home or self-care (01) ==
PROVIDERS: Emergency Provider Emergency Medicine; PCP Family Medicine
DX: J06.9 Acute upper respiratory infection, unspecified (principal); R00.0 Tachycardia, unspecified; Z20.822 Contact with and (suspected) exposure to COVID-19
CPT/HCPCS: 36415; 80053; 96360; 99284; 71045; 83735; 85025

== ENCOUNTER 2025-06-27 11:55 | Emergency (ER) | payer MEDICARE, SELFPAY ==
[2025-06-27 12:13] VITALS: BP 130/76; PULSE 77; RESP 16; TEMP 36.9; O2SAT 93
--- NOTE | 2025-06-27 13:15 | DI.RAD_ITS ---
Exam(s) XR TIB/FIB RT EXAM: XR TIB/FIB RT CLINICAL HISTORY: R calf pain; fall. TECHNIQUE: 2D digital imaging was performed. COMPARISON: No exams were available for comparison FINDINGS: Two views There is a right knee prosthesis. There are no fractures in the tibia and fibula. No radiopaque foreign bodies. Some phleboliths are noted in the calf. No radiopaque foreign bodies. Inferior calcaneal spur is noted. IMPRESSION: No acute osseous findings in the tibia and fibula. Knee prosthesis noted. DATA REPOSITORY: RADIATION DOSE DELIVERED:
--- NOTE | 2025-06-27 13:15 | DI.RAD_ITS ---
Exam(s) XR KNEE RT 3V AP,LAT,DONNA EXAM: XR KNEE RT 3V AP,LAT,DONNA CLINICAL HISTORY: R knee pain. TECHNIQUE: 2D digital imaging was performed. COMPARISON: CR RIGHT KNEE 3 VIEWS from 08/14/2012 FINDINGS: There is a right knee prosthesis which was not evident in 2012 There is no evidence of acute fracture. There is no obvious joint effusion. There has been patellar resurfacing. There also calcific densities seen above the patella, some of which were previously present in 2012 which which have increased in the region of the distal quadriceps tendon since 2012. On the AP view there is some linear lucency subjacent to the tibial component of the prosthesis, possibly significant. There is no significant lucency around the femoral component. IMPRESSION: No acute fractures. Linear lucency subjacent to the tibial component of the prosthesis may indicate an element of loosening. Chronic calcific changes above the patella in the region of the quadriceps tendon. DATA REPOSITORY: RADIATION DOSE DELIVERED:
--- NOTE | 2025-06-27 13:22 | W.ED.GENAD ---
Discharge Plan Disposition Patient Disposition: Home Condition: Stable Discharge Details Clinical Impression: Right calf pain Primary Care Provider: Omkar Diego ED Provider: Feliberto Dugan Home Meds and New Rx's Prescriptions: Continued Vitamin D3 4,000 unit Capsule 4,000 unit PO DAILY rosuvastatin 5 mg tablet 5 mg PO DAILY Patient Comments: TAKE ONE TABLET BY MOUTH EVERY NIGHT AT BEDTIME Ozempic 0.25 mg or 0.5 mg (2 mg/3 mL) pen injector 0.25 mg SUBCUT ONCE Patient Comments: INJECT 0.25MG UNDER THE SKIN EVERY WEEK - ROTATE INJECTION SITES Discharge Instructions Instructions: Leg Pain (ED) Additional Instructions: You were seen in the emergency department for your right calf pain, the knee x-ray shows a possible lucency indicating possible loosening of the tibial aspect of your knee replacement though this is not definitive. Recommend rest, ice, compress and elevate only stretch her calf muscles. Tylenol and ibuprofen as needed for pain, please follow-up with orthopedic visit for repeat imaging and evaluation of this possible incidental finding on your x-ray and loosening of hardware. You do not have pain at the site of this finding and I do not suspect there is any acute fracture here. Follow-up with the [facility] for repeat XR if needed. Referrals: Omkar Diego [Primary Care Provider, Medicine] Discharge Data Discharge Date/Time-TO BE ENTERED AT DEPARTURE: 06/27/25 14:56 HPI General Date/Time Provider Initiated Documentation: 06/27/25 12:17. HPI Narrative: 75 year-old female presents to ED today by POV/ambulating with a chief complaint of fall this morning in a parking lot, landing to anterior knee with history of bilateral hip and knee replacements. Quality described as mid-calf pain, feels like a pulled muscle, no radiation to numbness/tingling, abrasions, bruising, inability to walk, patient is R-side dominant. Severity is described as moderate. Palliating factors include nothing specific. Provoking factors include nothing specific. Patient not anticoagulated. Related Data Home Medications ?Medication ?Instructions ?Recorded ?Confirmed cholecalciferol (vitamin D3) 100 4,000 unit PO DAILY 12/02/18 06/27/25 mcg (4,000 unit) capsule (Vitamin D3) rosuvastatin 5 mg tablet 5 mg PO DAILY 06/27/25 06/27/25 semaglutide 0.25 mg or 0.5 mg (2 0.25 mg subcut ONCE 06/27/25 06/27/25 mg/3 mL) subcutaneous pen injector (Ozempic) Allergies Allergy/AdvReac Type Severity Reaction Status Date / Time latex Allergy Skin Rash Unverified 12/02/18 11:15 peanut Allergy Nausea Unverified 12/02/18 11:17 Sulfa (Sulfonamide Allergy PASSED Unverified 12/02/18 11:15 Antibiotics) OUT acetaminophen (From Tylenol) AdvReac GI UPSET Unverified 12/02/18 11:15 aspirin AdvReac GI UPSET Unverified 12/02/18 11:15 General Stated Complaint: Fall/Non TraumaCriteria ZACH: 3 Review of Systems All systems reviewed & are unremarkable except as noted in HPI and below Exam Narrative Exam Narrative: GENERAL APPEARANCE: Well-nourished, non-toxic, awake and alert, atraumatic, no acute distress. SKIN: Warm, pink, dry, intact, without rashes/lesions/ulcerations. HEAD: Normocephalic, atraumatic, normal hair distribution for gender/age. EYES: Normal conjunctiva, no exudates on lids/lashes. ENT: Nares patent, no circumoral cyanosis, no facial swelling NECK: Supple, trachea midline, painless cervical ROM. LUNGS/CHEST: Non-labored respirations, normal A/P diameter, symmetrical expansion, no chest wall deformity HEART (CV/PV): No peripheral edema, no JVD. ABDOMEN: Soft, non-distended, no guarding. MSK: Normal ROM, no swelling/deformity to bilateral UEs or LEs, moving all extremities without weakness, no cyanosis, spine midline without tenderness, normal curvature, R CALF: Mild tenderness without bruising swelling to the calf, no evidence of tendon rupture, Paredes's test negative for any Achilles rupture, patella mobile without crepitus, patient has no joint line tenderness or instability of the knee NEURO: Mental Status AAOx4 - alert to person, place, time, events No facial droop, no forehead involvement. Motor: No focal weakness - strength 5/5 in bilateral UEs and LEs, proximal and distal, symmetric. Sensory: sensation intact to light touch globally. Gait normal: patient ambulated without ataxia into ED room. PSYCH: euthymic, cooperative, pleasant, appropriate speech Course Vital Signs Vital signs: Vital Signs Temperature 36.9 C 06/27/25 12:13 Pulse 77 06/27/25 12:13 Respiratory Rate 16 06/27/25 12:13 Blood Pressure 130/76 06/27/25 12:13 Pulse Oximetry 93 06/27/25 12:13 Temperature 36.9 C 06/27/25 12:13 Pulse 77 06/27/25 12:13 Respiratory Rate 16 06/27/25 12:13 Blood Pressure 130/76 06/27/25 12:13 Blood Pressure Mean 94 06/27/25 12:13 Pulse Oximetry 93 06/27/25 12:13 Oxygen Delivery Method Room Air 06/27/25 12:13 Oxygen Flow Rate 0 06/27/25 12:13 Pain Level 9 06/27/25 12:07 Medical Decision Making This dictation utilizes [id number] dictation software and may contain unedited grammatical errors. 75 year-old female presents to ED today by POV/ambulating with a chief complaint of fall this morning in a parking lot, landing to anterior knee with history of bilateral hip and knee replacements. Quality described as mid-calf pain, feels like a pulled muscle, no radiation to numbness/tingling, abrasions, bruising, inability to walk, patient is R-side dominant. Severity is described as moderate. Palliating factors include nothing specific. Provoking factors include nothing specific. Patients' medical history: Osteoarthritis. Family and social history: Noncontributory. Pertinent exam findings / vital signs include focal tenderness without bruising or nodular swelling to the mid right calf, no popliteal fossa tenderness, no joint line tenderness, patella mobile, no ecchymosis, able to bear weight, no crepitus. Differential / pathologies of concern include fracture, strain. Diagnostic studies of: - X-ray knee, x-ray [id number] no acute fracture question is loosening but this is not consistent with exam and repeat imaging by orthopedic outpatient. Interventions of: - 4 mg p.o. ibuprofen, counseled on using his neoprene knee sleeve if needed. ED Course/Assessment/Plan: 75-year-old female presents with a fall in a parking lot earlier today has right calf pain, wanted imaging done due to her history of knee replacement, there does question a small lucency and loosening by expect this is likely a chronic finding as no evidence of instability of the knee on exam, recommend she follow-up with her orthopedics team for further imaging for this problem. Otherwise she just needs to rest, ice, compress and elevate take further doses of Tylenol and ibuprofen for likely muscle strain. Findings not consistent with tendon rupture, inability to bear weight, fracture, trauma. Disposition of Right Calf Pain. Patient verbalized understanding of the plan and return to ED criteria and engaged in shared decision making. Medical Records Medical records reviewed: Yes I reviewed the patient's medical records. Imaging Data Radiologic Study: Attestation: I personally reviewed and interpreted this imaging study as follows: Imaging: X-Ray Radiologist's impression: EXAM: XR KNEE RT 3V AP,LAT,DONNA CLINICAL HISTORY: R knee pain. TECHNIQUE: 2D digital imaging was performed. COMPARISON: CR RIGHT KNEE 3 VIEWS from 08/14/2012 FINDINGS: There is a right knee prosthesis which was not evident in 2012 There is no evidence of acute fracture. There is no obvious joint effusion. There has been patellar resurfacing. There also calcific densities seen above the patella, some of which were previously present in 2012 which which have increased in the region of the distal quadriceps tendon since 2012. On the AP view there is some linear lucency subjacent to the tibial component of the prosthesis, possibly significant. There is no significant lucency around the femoral component. IMPRESSION: No acute fractures. Linear lucency subjacent to the tibial component of the prosthesis may indicate an element of loosening. Chronic calcific changes above the patella in the region of the quadriceps tendon. Radiologic Study #2: Attestation: I personally reviewed and interpreted this imaging study as follows: Imaging: X-Ray Radiologist's impression: EXAM: XR TIB/FIB RT CLINICAL HISTORY: R calf pain; fall. TECHNIQUE: 2D digital imaging was performed. COMPARISON: No exams were available for comparison FINDINGS: Two views There is a right knee prosthesis. There are no fractures in the tibia and fibula. No radiopaque foreign bodies. Some phleboliths are noted in the calf. No radiopaque foreign bodies. Inferior calcaneal spur is noted. IMPRESSION: No acute osseous findings in the tibia and fibula. Knee prosthesis noted. PFSH All Active Problems (Updated 06/27/25 @ 14:35 by FRANK Gregory) Right calf pain (Acute) Medical History (Updated 06/27/25 @ 14:35 by FRANK Gregory) Osteoarthritis GERD (gastroesophageal reflux disease) Surgical History History of hip replacement History of knee replacement Social History Smoking/Tobacco Use Status: Never Smoking risk assessment performed?: Yes Alcohol Intake: former Drug use: Never Substance use type: does not use Housing: house Do you feel safe at home: Yes Do you feel safe in your relationship?: Yes
[2025-06-27] MEDS: Ibuprofen 400 MG TAB PO (13:52)
[2025-06-27 14:56] VITALS: BP 143/82; PULSE 75; RESP 20; TEMP 36.7; O2SAT 93
== END 2025-06-27 14:56 | disposition home or self-care (01) ==
PROVIDERS: Emergency Provider Physician Assistant; PCP Family Medicine
DX: M79.661 Pain in right lower leg (principal); Z96.653 Presence of artificial knee joint, bilateral; Z96.643 Presence of artificial hip joint, bilateral; Z79.899 Other long term (current) drug therapy
CPT/HCPCS: 73562; 99283; 73590